=== PATIENT | male | born 1985 | race Caucasian/White ===

== ENCOUNTER 2017-07-18 04:52 | Emergency (ER) | payer SELFPAY ==
[2017-07-18 05:32] LABS: BASOPHIL % 1.2 % (0-2); PLATELET COUNT 221 x10^3mcL (130-400); RED CELL DISTRIBUTION WIDTH 13.5 % (11.5-14.5)
[2017-07-18 05:39] LABS: CALCIUM 7.7 mg/dL (8.5-10.1); CARBON DIOXIDE 26.4 mmol/L (21-32); CHLORIDE SERUM 97 mmol/L (98-107); CREATININE SERUM 0.7 mg/dL (0.7-1.3); GFR1 > 60 mL/min; GLUCOSE SERUM 109 mg/dL (74-106); POTASSIUM SERUM 3.2 mmol/L (3.5-5.1); SODIUM SERUM 137 mmol/L (136-145)
[2017-07-18 05:45] LABS: ALBUMIN 3.5 g/dL (3.4-5.0); ALKALINE PHOSPHATASE 82 U/L (46-116); ALT/SGPT 112 U/L (16-63); AST/SGOT 172 U/L (15-37); BILIRUBIN TOTAL 0.95 mg/dL (0.20-1.00); LIPASE 91 IU/L (73-393)
[2017-07-18 13:12] VITALS: BP 134/88
== END 2017-07-18 13:12 | disposition home or self-care (01) ==
LOC: ED 04:52 → EDBD 04:52 → ED 13:12
PROVIDERS: Emergency Medicine
DX: F10.239 Alcohol dependence with withdrawal, unspecified (principal); E87.2 Acidosis; Z91.013 Allergy to seafood
CPT/HCPCS: 83880; 87804; G0480; J2060; J3411; J3475; J3490; J7030; Q0092